=== PATIENT | female | born 1945 | race Caucasian/White ===

== ENCOUNTER → 2016-11-29 | Outpatient (CLI) | payer MEDICARE, OTHER | END | disposition home or self-care (01) | LOC: PCVCIMAG 14:26 | PROVIDERS: ATTEND Internal Medicine Cardiovascular Disease | DX: I65.21 Occlusion and stenosis of right carotid artery (principal); I87.1 Compression of vein; E78.00 Pure hypercholesterolemia, unspecified; I25.10 Atherosclerotic heart disease of native coronary artery without angina pectoris; I73.9 Peripheral vascular disease, unspecified; J44.9 Chronic obstructive pulmonary disease, unspecified; I10 Essential (primary) hypertension | CPT/HCPCS: 80061; 93005; 93880; 93931; G0463 ==

== ENCOUNTER → 2017-06-07 | Outpatient (CLI) | payer MEDICARE, OTHER ==
[~2017-06-07] MED LIST: REGADENOSON 0.4 MG/5 ML DISP.SYRIN. IV ONE
--- NOTE | 2017-06-07 10:06 | PCVCIMAG ---
EXAM: BILATERAL CAROTID DUPLEX INDICATION: Carotid Occlusive Disease. FINDINGS: Doppler Measurements (centimeters per second): RIGHT: Peak CCA-122, Peak ECA-167, Diastolic ICA-36, Peak ICA-148, ICA/CCA Ratio-1.2. LEFT: Peak CCA-123, Peak ECA-219, Diastolic ICA-0, Peak ICA-0, ICA/CCA Ratio-0. RIGHT CAROTID: The carotid bulb has mild plaque. The proximal internal carotid artery shows 40-50% stenosis. The common carotid artery shows no significant stenosis. The external carotid artery shows 50% stenosis. LEFT CAROTID: The carotid bulb has moderate plaque. The proximal internal carotid artery shows complete chronic occlusion.. The common carotid artery shows no significant stenosis. The external carotid artery shows 60% stenosis. Antegrade flow in both vertebral arteries. IMPRESSION: 40-50% stenosis of the right internal carotid artery with mild plaque. Chronic complete occlusion cervical left internal carotid artery. No change since November 2016 study. LOC:[id number]
--- NOTE | 2017-06-07 10:59 | PCVCIMAG ---
EXAM: AORTOILIAC DUPLEX INDICATION: Peripheral arterial disease FINDINGS: AORTA: Suprarenal aorta measures maximum diameter of 2.2 cm. There is not a fusiform infrarenal aortic aneurysm. The infrarenal aorta measures maximum diameter of 2.0 cm. No aortic stenosis. RIGHT COMMON ILIAC ARTERY: Maximum diameter is 0.8 cm. No significant stenosis. RIGHT EXTERNAL ILIAC ARTERY: No significant stenosis. LEFT COMMON ILIAC ARTERY: Maximum diameter is 0.9 cm. Mild stenosis distally. LEFT EXTERNAL ILIAC ARTERY: No significant stenosis. IMPRESSION: No abdominal aortic aneurysm. No high-grade aortoiliac stenosis seen. LOC:[id number]
--- NOTE | 2017-06-07 11:06 | PCVCIMAG ---
EXAM: ARTERIAL DUPLEX BOTH UPPER EXTREMITIES INDICATION: Peripheral arterial disease. Previous right axillary stent. FINDINGS: Right arm: Normal triphasic waveforms throughout the subclavian, axillary, brachial, radial, and ulnar arteries without evidence of flow-limiting stenosis. Previous right axillary artery stent maintaining good patency. Left arm: Normal triphasic waveforms throughout the subclavian, axillary, brachial, radial, and ulnar arteries without evidence of flow-limiting stenosis. IMPRESSION: No evidence of flow-limiting arterial stenosis in either upper extremity as detailed above. Previous right axillary artery stent maintaining satisfactory patency. LOC:[id number]
--- NOTE | 2017-06-07 16:16 | PCVCIMAG ---
APPROVED REPORT Exam: Nuclear Stress Test Indication: CAD Patient Location: Out-Patient Stress Nurse: Dhara Edward RN, Margareth Carver RN DE Tech:NACHO BowensB Ht: 5 ft 5 in Wt: 183 lbs BSA: 1.90 m2 HR: 64 bpm BP: 195/78 mmHg BMI: 30.4 Rhythm: NSR Medical History Medical History: Age, Hyperlipidemia, HTN, PVD, CVD, COPD, CAD, DM, Former Smoker Medications: Levemir, Plavix, Metoprolol (held 24 hours) Crestor, Novolog, Amiodarone, ASA, Lasix, Losartan Allergies: Tetanus, Morphine Previous Cardiac Procedures: CABG, LM- 70%-80% Pretest Chest Pain Characteristics: No chest pain Exercise History: Sedentary Physical Disabilities: Legs NM EXAM: Myocardial Perfusion REST/STRESS Imaging Protocol: Rest Tc-99m/Stress Tc-99m 1 day Resting Data Rest SPECT myocardial perfusion imaging was performed in supine position 45 minutes following the intravenous injection of 11.1 mCi of Tc-99m Sestamibi. Time of rest injection: 1000 Date: 06/07/2017 Pharmacologic Stress Pharmacologic stress test was performed by injecting Regadenoson 0.4 mg IV push followed by the intravenous injection of 34.8 mCi of Tc-99m Sestamibi. Time of stress injection: 1120 Date: 06/07/2017 The images were gated to evaluate regional wall motion and calculate left ventricular ejection fraction. Study Quality Study: Good Study Data Post stress, the left ventricular ejection was 73%.. SSS: 0 SRS: 0 SDS: 0 TID = 0.91. Perfusion No evidence of stress induced ischemia or prior myocardial infarction. Wall Motion Normal left ventricular size and function with no regional wall motion abnormalities. Nuclear Conclusion No evidence of stress induced ischemia or prior myocardial infarction. Normal left ventricular size and function with no regional wall motion abnormalities. Post stress, the left ventricular ejection was 73%.. No prior study available for comparison. Interpreted by: Joshua Chávez MD Electronically Approved: 06/07/2017 14:53:03 Stress Test Details Stress Test: Pharmacologic stress testing performed using 0.4 mg of regadenoson per 5 mL given IV over 10 seconds. HR Resting HR: 64 bpmMax Heart Rate (APMHR): 148 bpm Max HR Achieved: 80 bpmTarget HR (85% APMHR): 125 bpm % of APMHR: 54 Recovery HR: 73 bpm BP Resting BP: 195/78 mmHg Max BP: 186/95 mmHg ECG Resting ECG: Sinus Rhythm Stress ECG: Sinus Rhythm, Sinus Rhythm, NSSTT changes Recovery ECG: Sinus Rhythm Clinical Reason for Termination: Completed protocol Stress Symptoms: Mildly Queasy Exercise duration: min 55 sec Exercise capacity: 1.0 METs Symptoms resolved during recovery. Stress ECG Conclusion ECG: Non-ischemic Clinical: Non-ischemic <Conclusion> ECG: Non-ischemic Clinical: Non-ischemic
== END | disposition home or self-care (01) ==
LOC: PCVCIMAG 08:42
PROVIDERS: ATTEND Nuclear Medicine Nuclear Cardiology
DX: I65.23 Occlusion and stenosis of bilateral carotid arteries (principal); I73.9 Peripheral vascular disease, unspecified; K52.9 Noninfective gastroenteritis and colitis, unspecified; J44.9 Chronic obstructive pulmonary disease, unspecified; I25.10 Atherosclerotic heart disease of native coronary artery without angina pectoris; E78.5 Hyperlipidemia, unspecified; E11.9 Type 2 diabetes mellitus without complications; I10 Essential (primary) hypertension; Z87.891 Personal history of nicotine dependence; Z95.1 Presence of aortocoronary bypass graft; M81.0 Age-related osteoporosis without current pathological fracture; Z79.82 Long term (current) use of aspirin; Z79.4 Long term (current) use of insulin; Z90.710 Acquired absence of both cervix and uterus; Z95.828 Presence of other vascular implants and grafts; Z79.899 Other long term (current) drug therapy; Z88.8 Allergy status to other drugs, medicaments and biological substances
CPT/HCPCS: 78452; 80061; 93005; 93017; 93880; 93930; 93978; A9500; G0463; J2785

== ENCOUNTER → 2018-04-18 | Outpatient (CLI) | payer MEDICARE, OTHER | END | disposition home or self-care (01) | LOC: PCVCIMAG 10:40 | DX: I25.10 Atherosclerotic heart disease of native coronary artery without angina pectoris (principal); I77.9 Disorder of arteries and arterioles, unspecified; I10 Essential (primary) hypertension; E78.00 Pure hypercholesterolemia, unspecified; I73.9 Peripheral vascular disease, unspecified; F03.90 Unspecified dementia, unspecified severity, without behavioral disturbance, psychotic disturbance, mood disturbance, and anxiety; I77.1 Stricture of artery; E11.9 Type 2 diabetes mellitus without complications; I65.23 Occlusion and stenosis of bilateral carotid arteries; Z79.82 Long term (current) use of aspirin; Z87.891 Personal history of nicotine dependence | CPT/HCPCS: 80061; 93005; 93880; 93931; G0463 ==

== ENCOUNTER → 2018-04-25 | Outpatient (CLI) | payer MEDICARE, OTHER ==
[~2018-04-25] MED LIST changes: +DIAZEPAM 10 MG TABLET. ONE; +HEPARIN SODIUM 5,000 UNIT/ML VIAL for PCVC. ONE; +HEPARIN for ARTERIAL LINE 1,500 ML ONE; +IODIXANOL 270 MG/ML 100 ML VIAL. ONE; +IOHEXOL 350 MG/ML 100 ML VIAL. ONE; +IOHEXOL 350 MG/ML 50 ML VIAL. ONE; +LIDOCAINE 1%/EPI 1:100,000 20 ML VIAL. ONE; +MIDAZOLAM HCL/PF 2 MG/2 ML VIAL. ONE; -REGADENOSON 0.4 MG/5 ML DISP.SYRIN. IV ONE; +ceFAZolin SODIUM 1 GM VIAL ONE; +fentaNYL PF VIAL 100 MCG/2 ML VIAL ONE
--- NOTE | 2018-04-25 11:01 | PCVCINTER ---
EXAM: 1. AORTOGRAM AND BILATERAL ILIOFEMORAL ANGIOGRAPHY 2. BILATERAL RENAL ANGIOGRAPHY 3. CERVICAL CEPHALIC ARCH AORTOGRAM 4. RIGHT AND LEFT UPPER EXTREMITY ANGIOGRAPHY. 5. LEFT SUBCLAVIAN ARTERY STENT PLACEMENT. INDICATION: Peripheral arterial disease. Upper extremity pain. Left subclavian steal. Hypertension. Renal atherosclerosis. PROCEDURE: Procedure and risks of the procedures listed above were discussed with the patient and consent obtained. Risks including but not limited to bleeding, infection, stroke, vascular injury, neurologic injury, embolization, allergic reactions, bowel ischemia requiring resection, and contrast-induced nephropathy requiring dialysis were discussed as appropriate and consent obtained. Patient was placed on the angiography table. IV conscious sedation was used throughout procedure with appropriate monitoring from 9:00 AM through 10:15 AM. The right groin was prepped and draped in the normal sterile fashion. Ultrasound was used to interrogate the right groin and demonstrate the right common femoral artery. An ultrasound image was saved. Under ultrasound guidance a 21 gauge needle was used to gain access into the right common femoral artery and a 5F vascular sheath was placed. Catheter was placed into the ascending thoracic aorta and cervical cephalic arch aortogram performed. Catheter was placed into the suprarenal abdominal aorta and abdominal aortic angiogram performed. Catheter was placed into the distal abdominal aorta and bilateral iliofemoral angiography performed. Catheter was placed into the right renal arteries and right renal angiograms performed. Catheter was placed into the left renal arteries and left renal angiograms performed. Catheter was placed into the right subclavian artery and right subclavian/upper extremity angiogram performed. Catheter was placed into the left subclavian artery and left subclavian/upper extremity angiogram was performed. Stent placed across the high-grade stenosis proximal left subclavian artery was performed with an 8 x 29 [place] stent with subsequent dilatation to 8.[address] Sun joined the procedure and he performed coronary angiography. Please see his separate dictation for details. Catheters and wires removed. Sheath was removed and hemostasis obtained using the FISH device. No immediate complications. FINDINGS: Cervical cephalic arch aortogram: The innominate artery is patent and gives rise to the right and left common carotid arteries. There is high-grade stenosis in the proximal left subclavian artery. The right vertebral artery is widely patent and is the dominant vessel. Reversed flow in the left vertebral artery is identified. Mild stenosis mid left subclavian artery not felt to be flow-limiting. Incidental note is made of known chronic occlusion cervical left internal carotid artery. Aortogram: There is one right and one left renal artery. Moderate plaque infrarenal abdominal aorta. Stents in the distal aorta kissing fashion are patent. Bilateral iliofemoral angiography: Right and left common iliac artery stents maintaining adequate patency. Portions of the iliac arteries are obscured by the methylmethacrylate in the lower lumbar vertebral bodies. Both internal iliac arteries are patent. Both external iliac arteries are patent. The right and left common femoral and profunda femoral arteries are patent as are the visualized portions of the upper superficial femoral arteries. Right renal artery: Mild plaque proximal vessel does not cause significant stenosis. Left renal artery: Mild plaque proximal vessel does not cause significant stenosis. Right upper extremity: Moderate plaque origin right subclavian artery does not cause flow-limiting stenosis. The origin the right vertebral artery is patent. Mid and distal subclavian artery show good patency. Previous stent throughout the axillary artery shows mild intimal hyperplasia but this is not cause significant stenosis. The brachial artery is patent. Left upper extremity: Extensive plaque proximal left subclavian artery results in 95% stenosis. Mild stenosis in the mid left subclavian artery. Left subclavian artery bifurcates early and axillary artery and brachial arteries are patent where visualized. Left subclavian artery: Moderate procedure as above vessel shows good patency with good flow throughout the stent. IMPRESSION: 95% stenosis proximal left subclavian artery due to extensive plaque with reverse flow noted in the left vertebral artery. This was treated with stent placement with good patency restored. Previous right axillary artery stent maintaining good patency. Previous distal aortic and bilateral common iliac artery stents are patent. LOC:[id number]
--- NOTE | 2018-04-25 17:11 | PCVCINTER ---
APPROVED REPORT Study performed: 04/25/2018 09:03:18 Patient Details Patient Status: Out-Patient Room #: 2 The patient is a 72 year-old Female Event Personnel Josh Manju RT(R), Thierno Sanchez RN, Bo Sun M.D. Risk Factors Arterial HypertensionDysplipidemia (Type: 1), Peripheral Vascular Disease, Chronic Lung DiseaseHypercholesterolemia, Diabetes (Control: Insulin)Last Creatanine 1 Previous Procedures/Diagnoses Previous CABGPrevious PCI, Previous Femoral Procedure Procedure Narrative A 6 sheath was inserted into the right femoral artery. Coronary angiography was performed using coronary diagnostic catheters. The right coronary system was accessed and visualized with a RCB catheter. The left coronary system was accessed and visualized with a JL4 catheter. The left ventricle was accessed and visualized with a Straight Pigtail catheter. Closure device was deployed with a 8 Fr FISH. Hemostasis was obtained with manual pressure following sheath removal without any complications. The patient tolerated the procedure well and there were no complications associated with the procedure. There was no hematoma. Hemodynamics The aortic pressure is 142/69 mmHg with a mean of 101 mmHg. The left ventricular pressure is 155/-5 mmHg with a mean of 1 mmHg. Conclusion #1 normal left ventricular size and systolic function EF 60% #2 high grade left main lesion subtotaled filling a LAD which occludes proximally and a circumflex competitively. #3 and SVG to OM system well preservedsignificant graft disease is noted filling the OM and retrograde into the circumflex. #4 the [place] right occluded #5 the SVG to an acute marginal branch faint filling of the RCA without significant distribution. Recommendations plan continue aggressive risk factor modification follow peripheral stent protocol subclavian stent placed per Dr. Chávez see his dictation
== END | disposition home or self-care (01) ==
LOC: PCVCIMAG 11:30
PROVIDERS: ATTEND Nuclear Medicine Nuclear Cardiology
DX: I70.1 Atherosclerosis of renal artery (principal); I25.10 Atherosclerotic heart disease of native coronary artery without angina pectoris; I70.8 Atherosclerosis of other arteries; I65.22 Occlusion and stenosis of left carotid artery; I70.0 Atherosclerosis of aorta; Z95.1 Presence of aortocoronary bypass graft; I10 Essential (primary) hypertension; Z79.82 Long term (current) use of aspirin; Z87.891 Personal history of nicotine dependence; E78.00 Pure hypercholesterolemia, unspecified; E11.9 Type 2 diabetes mellitus without complications; F03.90 Unspecified dementia, unspecified severity, without behavioral disturbance, psychotic disturbance, mood disturbance, and anxiety; Z79.84 Long term (current) use of oral hypoglycemic drugs
CPT/HCPCS: 36215; 36216; 36252; 37236; 75630; 75716; 76937; 93459; 99152; 99153; C1713; C1725; C1751; C1769; C1876; C1894; J0690; J1644; J2250; J3010; J3490; Q9967

== ENCOUNTER → 2018-12-24 | Outpatient (CLI) | payer MEDICARE, OTHER ==
--- NOTE | 2018-12-24 12:54 | PCVCIMAG ---
EXAM: AORTOILIAC DUPLEX INDICATION: Peripheral arterial disease FINDINGS: AORTA: Suprarenal aorta measures maximum diameter of 2.7 cm. There is not a fusiform infrarenal aortic aneurysm. The infrarenal aorta measures maximum diameter of 2.3 cm. No aortic stenosis. RIGHT COMMON ILIAC ARTERY: Maximum diameter is 1.0 cm. Mild stenosis proximally. RIGHT EXTERNAL ILIAC ARTERY: No significant stenosis. LEFT COMMON ILIAC ARTERY: Maximum diameter is 0.7 cm. No significant stenosis. LEFT EXTERNAL ILIAC ARTERY: No significant stenosis. IMPRESSION: No abdominal aortic aneurysm. No flow limiting aortoiliac stenosis seen. LOC:[id number]
--- NOTE | 2018-12-24 13:10 | PCVCIMAG ---
EXAM: ARTERIAL DUPLEX BOTH UPPER EXTREMITIES INDICATION: Peripheral arterial disease. Previous right axillary and left subclavian stent. FINDINGS: Right arm: Satisfactory arterial waveforms throughout the innominate artery, subclavian artery, axillary artery, brachial artery, radial artery, and ulnar artery without significant stenosis. Previous axillary artery stent maintaining satisfactory patency.. Left arm: Satisfactory arterial waveforms throughout the subclavian, axillary, brachial, radial, and ulnar arteries. Mild restenosis left subclavian artery stent not felt be flow-limiting. IMPRESSION: No flow-limiting arterial stenosis seen in either upper extremity. Mild restenosis proximal left subclavian artery within prior stent. Right axillary artery stent maintaining good patency. LOC:[id number]
== END | disposition home or self-care (01) ==
LOC: PCVCIMAG 08:00
PROVIDERS: ATTEND Internal Medicine Cardiovascular Disease
DX: I73.9 Peripheral vascular disease, unspecified (principal); I25.10 Atherosclerotic heart disease of native coronary artery without angina pectoris; E78.00 Pure hypercholesterolemia, unspecified; I65.23 Occlusion and stenosis of bilateral carotid arteries; J44.9 Chronic obstructive pulmonary disease, unspecified; F03.90 Unspecified dementia, unspecified severity, without behavioral disturbance, psychotic disturbance, mood disturbance, and anxiety; I10 Essential (primary) hypertension; E11.9 Type 2 diabetes mellitus without complications; Z87.891 Personal history of nicotine dependence; Z79.899 Other long term (current) drug therapy; Z95.820 Peripheral vascular angioplasty status with implants and grafts
CPT/HCPCS: 36415; 80061; 93005; 93930; 93978; G0463